=== PATIENT | female | born 1970 | race Hispanic/Latino ===

== ENCOUNTER 2021-03-15 09:26 | Outpatient (CLI) | payer OTHER | END 2021-03-15 09:27 | disposition home or self-care (01) | LOC: CSHMAMMO 09:26 | PROVIDERS: ATTEND Nurse Practitioner Family | DX: Z12.31 Encounter for screening mammogram for malignant neoplasm of breast (principal) | CPT/HCPCS: 77063; 77067 ==

== ENCOUNTER 2022-01-04 16:42 | Outpatient (CLI) | payer OTHER | END 2022-01-04 16:43 | disposition home or self-care (01) | LOC: CSHLAB 16:42 | PROVIDERS: ATTEND Internal Medicine Gastroenterology | DX: Z12.11 Encounter for screening for malignant neoplasm of colon (principal); Z20.822 Contact with and (suspected) exposure to COVID-19 | CPT/HCPCS: 87811 ==

== ENCOUNTER 2022-01-08 07:07 | Day surgery (SDC) | payer OTHER ==
[2022-01-03 16:13] VITALS: BMI 37.5
[2022-01-08] MEDS ORDERED: Lidocaine 1% PF 5 ML VIAL ONE (08:25)
== END 2022-01-08 10:14 | disposition home or self-care (01) ==
LOC: CSHSDC 07:07
PROVIDERS: ATTEND Internal Medicine Gastroenterology
PROC: 0DJD8ZZ Inspection of Lower Intestinal Tract, Via Natural or Artificial Opening Endoscopic (ICD-10-PCS; principal; 2022-01-08)
DX: Z12.11 Encounter for screening for malignant neoplasm of colon (principal); K57.30 Diverticulosis of large intestine without perforation or abscess without bleeding; K64.9 Unspecified hemorrhoids; Z20.822 Contact with and (suspected) exposure to COVID-19

== ENCOUNTER 2023-05-01 14:16 | Outpatient (CLI) | payer OTHER | END 2023-05-01 14:17 | disposition home or self-care (01) | LOC: CSHMAMMO 14:16 | PROVIDERS: ATTEND Family Medicine | DX: Z12.31 Encounter for screening mammogram for malignant neoplasm of breast (principal) | CPT/HCPCS: 77063; 77067 ==

== ENCOUNTER 2025-02-17 15:24 | Outpatient (CLI) | payer OTHER | END 2025-02-17 15:25 | disposition home or self-care (01) | LOC: CSHMAMMO 15:24 | PROVIDERS: ATTEND Nurse Practitioner Family | DX: Z12.31 Encounter for screening mammogram for malignant neoplasm of breast (principal) | CPT/HCPCS: 77063; 77067 ==